=== PATIENT | female | born 1950 | race Asian ===

== ENCOUNTER 2021-12-12 17:24 | Emergency (ER) | payer MEDICARE ==
[~2021-12-12] VITALS: Ht 157.5 cm; Wt 55.0 kg
[2021-12-12 17:25] VITALS: BP 139/82
== END 2021-12-12 19:05 | disposition home or self-care (01) ==
LOC: ER 17:24
DX: T76.31XA Adult psychological abuse, suspected, initial encounter (principal); L89.309 Pressure ulcer of unspecified buttock, unspecified stage; Z88.6 Allergy status to analgesic agent
CPT/HCPCS: 99283